=== PATIENT | female | born 1950 | race Two or more races ===

== ENCOUNTER 2016-08-09 09:40 | Emergency (ER) | payer MEDICARE ==
[~2016-08-09] VITALS: Ht 162.6 cm; Wt 67.1 kg
[~2016-08-09 09:40] MED LIST: AMIT25TA PO; LEVO25TA4 PO; PROP40TA PO; SIMV20TA3 PO; SUMA100T3 PO; losartan PO
[2016-08-09 10:58] LABS: BLOOD UREA NITROGEN 14 mg/dL (7-18)
[2016-08-09] MEDS ORDERED: MORPHINE SULFATE 4 MG/ML, 1ML IVPush PRN (11:00)
[2016-08-09] MEDS ORDERED: MORPHINE SULFATE 4 MG/ML, 1ML ONE (11:30)
[2016-08-09] MEDS ORDERED: LORazepam 1MG TABLET ONE (11:30)
[2016-08-09] MEDS ORDERED: KETOROLAC 30 MG/1 ML ONE (11:30)
[2016-08-09 11:55] VITALS: BP 149/79
[2016-08-09] MEDS ORDERED: LORazepam 1MG TABLET PO ONE (12:00)
[2016-08-09] MEDS ORDERED: KETOROLAC 30 MG/1 ML IVPush ONE (12:00)
== END 2016-08-09 11:57 | disposition home or self-care (01) ==
LOC: ED 11:42
DX: G44.201 Tension-type headache, unspecified, intractable (principal); R20.9 Unspecified disturbances of skin sensation; F41.1 Generalized anxiety disorder; I10 Essential (primary) hypertension
CPT/HCPCS: 36415; 70450; 80048; 82040; 84436; 84443; 85025; 93005; 96374; 96375; 99285; J1885